=== PATIENT | female | born 1980 | race Caucasian/White ===

== ENCOUNTER 2019-08-20 20:50 | Emergency (ER) | payer OTHER ==
[2019-08-20] MEDS ORDERED: EPINEPHRINE 0.1 MG/ML 10 ML SYG IVP ONE (20:51)
== END 2019-08-21 01:07 | disposition expired ==
LOC: EDH 20:50
DX: I46.9 Cardiac arrest, cause unspecified (principal)
CPT/HCPCS: 92950; 96374; 99291; J0171